=== PATIENT | male | born 1970 | race Caucasian/White ===

== ENCOUNTER 2020-11-29 04:31 | Emergency (ER) | payer SELFPAY ==
[~2020-11-29] VITALS: Ht 177.8 cm; Wt 86.4 kg
[2020-11-29 04:34] VITALS: TEMP 98.2
[2020-11-29 05:20] VITALS: BP 132/70; PULSE 78
== END 2020-11-29 05:20 | disposition home or self-care (01) ==
LOC: COL.ER 04:31
DX: M23.91 Unspecified internal derangement of right knee (principal)
CPT/HCPCS: L1846

== ENCOUNTER 2020-11-29 09:00 | Emergency (ER) | payer SELFPAY ==
[~2020-11-29] VITALS: Ht 177.8 cm; Wt 86.4 kg
[2020-11-29 09:06] VITALS: TEMP 97.6
[2020-11-29 09:30] LABS: BASO % 0.3 % (0.0-2.0); EOS % 0.4 % (0-4.0); GRAN # 5.2 (1.4-6.5); GRAN % 75.7 % (42.2-75.2); HEMATOCRIT 43.3 % (42.0-52.0); HEMOGLOBIN 14.3 g/dl (13.5-18.0); LYMPH # 1.1 (1.2-3.4); LYMPH % 16.7 % (20.0-51.0); MEAN CELL VOLUME 86 fl (80.0-100.0); MEAN CORPUSCULAR HEMOGLOBIN 29 pg (27.0-31.0); MEAN CORPUSCULAR HGB CONC 33 g/dl (33.0-37.0); MEAN PLATELET VOLUME 9.6 fl (7.4-10.4); MONO # 0.5 (0.1-0.6); MONO % 6.6 % (1.7-9.3); PLATELET COUNT 306 K/mm3 (130-400); RED BLOOD COUNT 5.02 M/mm3 (4.20-5.60); REDCELL DISTRIBUTION WIDTH-CV 12.4 % (11.5-14.5)
[2020-11-29 09:52] LABS: C-REACTIVE PROTEIN 0.5 mg/dL (0.0-0.9)
[2020-11-29 09:54] LABS: ERYTHROCYTE SEDIMENTATION RATE 9 mm/hr (0-15)
[2020-11-29 11:23] LABS: CALCIUM 9.8 mg/dL (8.4-10.2); CREATININE, serum 0.69 (0.66-1.25); POTASSIUM 4.1 mmol/L (3.4-5.0)
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
--- NOTE | 2020-11-29 14:19 | NUR ---
[facility] delivered the crutches to the patient's room. The patient's RN notified ANA that the patient's mother contacted ED and informed them that she has a room booked for the patient at [facility]. ANA provided the patient's RN with a taxi voucher to [facility]. No additional needs at this time.
[2020-11-29 15:02] VITALS: BP 136/76; PULSE 78
== END 2020-11-29 15:03 | disposition home or self-care (01) ==
LOC: COL.ER 09:00
PROVIDERS: Emergency Medicine
DX: M23.91 Unspecified internal derangement of right knee (principal)